=== PATIENT | female | born 1955 | race Caucasian/White ===

== ENCOUNTER 2016-08-16 22:18 | Inpatient (IN) | payer OTHER ==
[~2016-08-16] VITALS: Ht 170.2 cm; Wt 86.2 kg
[~2016-08-16 22:18] MED LIST: ASPI81EC PO; QUET50TA PO; TAMO20TA3 PO; VENL75CE5 PO
--- NOTE | 2016-08-16 22:30 | NUR ---
61/F BIBA FROM HOME FOR SOB FROM VOMITING. NO S/S OF RESP DISTRESS OR DISCOMFORT AT THIS TIME. PATIENT IS AMBULATORY AND VSS. PATIENT WHEELCHAIR ASSISTED TO MOE CLAY. ER AWARE.
--- NOTE | 2016-08-16 23:52 | NUR ---
61/F BIBA FROM HOME W/C/O SOB, N/V. PT VOMMITING, INCREASED HTN, AND STATES HER ADB HURTS. DENIES ANY CHEST PAIN, BUT STATES FEELS SOB. O2 SAT 100%RA. ER MD AWARED OF IT.
--- NOTE | 2016-08-17 00:28 | NUR ---
Dr. Villeda evaluating patient at bedside.
[2016-08-17] MEDS ORDERED: NACL 0.9% 1,000 ML IV ONE (00:30)
[2016-08-17 01:08] LABS: BASOPHILS # (AUTO) 0.1 K/uL (0.00-0.22); BASOPHILS % (AUTO) 1.1 % (0.0-2.0); EOSINOPHILS # (AUTO) 0.1 K/uL (0-0.4); EOSINOPHILS % (AUTO) 1.3 % (0.0-4.0); HEMATOCRIT 45.2 % (36-48); HEMOGLOBIN 14.7 g/dL (12.0-16.0); LYMPHOCYTES # (AUTO) 2.1 K/uL (2.5-16.5); LYMPHOCYTES % (AUTO) 18.6 % (20.5-51.1); MEAN CORPUSCULAR HEMOGLOBIN 31 pg (27-31); MEAN CORPUSCULAR HGB CONC 33 g/dL (33-37); MEAN CORPUSCULAR VOLUME 94 fL (80-94); MONOCYTES # (AUTO) 1.1 K/uL (0.8-1.0); MONOCYTES % (AUTO) 9.3 % (1.7-9.3); NEUTROPHILS # (AUTO) 8.1 K/uL (1.8-7.7); NEUTROPHILS % (AUTO) 69.7 % (42.2-75.2); PLATELET COUNT (AUTO) 189 K/uL (140-450); RED BLOOD CELL COUNT(AUTO) 4.81 MIL/uL (4.20-5.40); RED CELL DISTRIBUTION WIDTH 12.2 % (11.6-13.7); WHITE BLOOD COUNT (AUTO) 11.5 K/uL (4.8-10.8)
[2016-08-17] MEDS ORDERED: ONDANSETRON 4 MG/2 ML VIAL IM ONE (01:10)
[2016-08-17 01:23] LABS: ALBUMIN 3.8 g/dL (3.4-5.0); ANION GAP 15.6 (8-16); CALCIUM 8.9 mg/dL (8.5-10.1); CARBON DIOXIDE 23.4 mmol/L (21-32); TOTAL BILIRUBIN 0.5 mg/dL (0.0-1.0); TOTAL PROTEIN, SERUM 7.7 g/dL (6.4-8.2)
[2016-08-17] MEDS ORDERED: fentaNYL 0.05 MG/ML VIAL IM ONE (01:25)
[2016-08-17 01:57] LABS: INR 1.1 (0.8-1.2); PARTIAL THROMBOPLASTIN TIME 24.3 secs (22-35.6); PROTHROMBIN TIME 10.8 secs (10.8-13.4)
[2016-08-17 01:59] LABS: LACTIC ACID 2.9 mmol/L (0.4-2.0)
[2016-08-17] MEDS ORDERED: NACL 0.9% 1,500 ML IV ONE (02:00)
[2016-08-17] MEDS ORDERED: POTASSIUM CHLORIDE 10 MEQ TABER PO ONE (02:00)
[2016-08-17] MEDS ORDERED: METOCLOPRAMIDE 10 MG/2 ML INJ VIAL IVP ONE (02:05)
[2016-08-17] MEDS ORDERED: PIPERACILLIN/TAZOBACTAM 3.375 GM in DEXTROSE 5% 50 ML IV ONE (02:05)
[2016-08-17] MEDS ORDERED: PIPERACILLIN/TAZOBACTAM 3.375 GM VIAL IV ONE ×2 (02:08→05:10)
--- NOTE | 2016-08-17 02:11 | NUR ---
URINE PH: 9.0. MD NOTIFIED.
[2016-08-17 02:22] LABS: APPEARANCE,URINE CLOUDY (CLEAR); BILIRUBIN,URINE NEGATIVE (NEGATIVE); BLOOD, URINE TRACE-I (NEGATIVE); COLOR,URINE YELLOW (YELLOW); LEUKOCYTE ESTERASE ,URINE NEGATIVE (NEGATIVE); NITRITE, URINE NEGATIVE (NEGATIVE); PROTEIN,URINE NEGATIVE (NEGATIVE); UGLUCOSE TRACE (NEGATIVE); UROBILINOGEN,URINE 0.2 EU/dL (0.2 - 1)
[2016-08-17 02:31] LABS: BACTERIA,URINE OCCASSIONAL /HPF (None Seen); RBC,URINE 3-10 (FEW) /HPF (0-5); URINE AMORPHOUS URATE 2+ /HPF (None Seen); WBC,URINE 0-5 (RARE) /HPF (0-5)
[2016-08-17] MEDS ORDERED: ONDANSETRON 4 MG/2 ML VIAL IVP ONE (02:45)
[2016-08-17] MEDS ORDERED: POTASSIUM CHL 30 MEQ/ D5-1/2NS 1,000 ML IV ONE (02:45)
--- NOTE | 2016-08-17 02:50 | NUR ---
ADMINISTERED ZOFRAN AND POTASSIUM PO ORDERED BY ; AWARE OF K PO. PATIENT TOLERATED WELL. WILL CONTINUE TO MONITOR AND REASSESS. Addendum: 08/17/[address] LOBO OK TO GIVE K PO AND IV
--- NOTE | 2016-08-17 03:00 | NUR ---
Patient will be admitted to care of . Admited to [facility]. Will go to room 119A. Belongings list completed. REPORT GIVEN Alexia LAW FOR CONTINUITY OF CARE.
--- NOTE | 2016-08-17 03:25 | NUR ---
Admitted from E.. with chief complaint of SOB D/T VOMITING & ABDOMINAL PAIN. A 61 y/o. Female, Appropriate. ALERT AWAKE ORIENTED X4. INITIAL ASSESSMENT DONE. NO S/S OF RESPIRATORY DISTRESS OR SOB NOTED. NO C/O PAIN OR ANY DISCOMFORT AT THIS TIME. SKIN IS INTACT CLEAN DRY AND WARM TO TOUCH. PLAN OF CARE REVIEWED TO PT AND VERBALIZED UNDERSTANDING. oriented to call light, bed, phone,television, bathroom, smoking policy, visiting hours, procedures, ID bracelet on. Belongings list checked. CALL LIGHT WITHIN REACH. WILL CONTINUE TO MONITOR.
[2016-08-17] MEDS: DEXT 5% /NACL 0.9% 1,000 ML IV SCH ×2 (03:46→15:22)
[2016-08-17] MEDS ORDERED: PIPERACILLIN/TAZOBACTAM 3.375 GM in DEXTROSE 5% 50 ML IV SCH (05:00)
--- NOTE | 2016-08-17 05:30 | NUR ---
AM CARE RENDERED. BED LINEN CHANGED. INSTRUCTED PT TO REPOSITION. KEPT CLEAN AND DRY. CALL LIGHT WITHIN. WILL CONTINUE TO MONITOR.
--- NOTE | 2016-08-17 07:28 | NUR ---
RECEIVED REPORT FROM NIGHT NURSE, P IS AAOX4, ON ROOM AIR, IV TO LEFT AC 20G INFUSING WELL, NO S/S OF DISTRESS OR DISCOMFORT NOTED.INITIAL ASSESSMENT COMPLETED, REVIEWED PLAN OF CARE WITH PT, PT VERBALIZED UNDERSTANDING, ORIENTED PT TO ROOM AND ENVIRONMENT. CALL LIGHT WITHIN REACH. WILL CONTINUE TO MONITOR.
--- NOTE | 2016-08-17 07:28 | NUR ---
PT HAS NO S/S OF ANY DISCOMFORT. PLAN OF CARE ENDORSED TO SOY MINOR AT BEDSIDE FOR CONTINUITY OF CARE.
[2016-08-17 08:00] VITALS: BP 165/90
[2016-08-17] MEDS: VENLAFAXINE XR 75 MG CAPER PO SCH (08:44)
[2016-08-17] MEDS: ECOTRIN 81 MG TABEC PO SCH (08:44)
[2016-08-17] MEDS: QUEtiapine FUMARATE 25 MG TAB PO SCH (08:44)
[2016-08-17] MEDS: ENOXAPARIN 40 MG/0.4 ML SYR SUBQ SCH (08:45)
[2016-08-17] MEDS: MORPHINE SULFATE 2 MG/ML SYR IVP PRN ×2 (08:46→21:00)
--- NOTE | 2016-08-17 08:51 | NUR ---
DUE MEDICATIONS GIVEN PT TOLERATED WELL. PT STATES ABD PAIN 6/10 MEDICATED PER MD ORDERS. CALL LIGHT WITHIN REACH. WILL CONTINUE TO MONITOR.
[2016-08-17] MEDS: TAMOXIFEN 10 MG TAB PO SCH (09:00)
[2016-08-17] MEDS ORDERED: ENOXAPARIN 40 MG/0.4 ML SYR SUBQ SCH (09:00)
--- NOTE | 2016-08-17 09:07 | NUR ---
PATIENT HAS BEEN SCREENED AND CATEGORIZED MODERATE NUTRITION RISK. PATIENT WILL BE SEEN WITHIN 3-5 DAYS OF ADMISSION. 08/19/16-08/21/[address] Addendum: 08/18/16 at [address] PATIENT HAS BEEN RESCREENED AND RECATEGORIZED HIGH NUTRITION RISK. PATIENT WILL BE SEEN WITHIN 1-2 DAYS OF ADMISSION. 08/17/16-08/18/[address]
--- NOTE | 2016-08-17 10:30 | NUR ---
CHECKED IN ON PT, PT CURRENTLY SLEEPIN AT THIS TIME. CALL LIGHT WITHIN REACH. WILL CONTINUE TO MONITOR.
--- NOTE | 2016-08-17 11:15 | NUR ---
PT IS REFUSING TO CHANGE GOWNS OR BED SHEETS, ASSISTED PT TO RESTROOM AND BACK TO BED SAFELY. CALL LIGHT WITHIN REACH.
[2016-08-17] MEDS ORDERED: POTASSIUM CHLORIDE 10 MEQ TABER PO SCH (12:00)
[2016-08-17] MEDS: PIPER/TAZO 3.375GM/D5W PREMIX 50 ML IV SCH ×2 (12:34→21:00)
--- NOTE | 2016-08-17 12:36 | NUR ---
DUE MEDICATION GIVEN, PT TOLERATED WELL. NO S/S OF DISTRESS OR DISCOMFORT NOTED. CALL LIGHT WITHIN REACH. WILL CONTINUE TO MONITOR.
--- NOTE | 2016-08-17 13:56 | NUR ---
CHECKED IN ON PT, PT CURRENTLY SLEEPING. NO S/S OF RESPIRATORY DISTRESS NOTED, CALL LIGHT WITHIN REACH. WILL CONTINUE TO MONITOR.
--- NOTE | 2016-08-17 15:38 | NUR ---
PAGED DR VERONICA REGARDING BP OF 167/107 HR OF 108, NEW ORDERS RECEIVED.
[2016-08-17] MEDS ORDERED: LABETALOL 100 MG TAB PO SCH (15:40)
[2016-08-17 16:00] VITALS: BP 164/101
--- NOTE | 2016-08-17 16:16 | NUR ---
LABETALOL GIVEN PER MD ORDERS FOR HIGH BP OF 164/101 AND HR OF 108. CALL LIGHT WITHIN REACH. WILL CONTINUE TO MONITOR.
--- NOTE | 2016-08-17 16:55 | NUR ---
RECHECKED BP 162/97 HR 89. CALL LIGHT WITHIN REACH. WILL CONTINUE TO MONITOR.
--- NOTE | 2016-08-17 18:35 | NUR ---
CHECKED IN ON PT, PT CURRENTLY SLEEPING. PT REFUSES TO EAT. CALL LIGHT WITHIN REACH. WILL CONTINUE TO MONITOR.
--- NOTE | 2016-08-17 19:38 | NUR ---
ENDORSED PLAN OF CARE TO NIGHT NURSE, PT IN STABLE CONDITION
--- NOTE | 2016-08-17 19:39 | NUR ---
RECD. RESTING IN BED, AWAKE, A/0X4. RESPIRATION EVEN AND UNLABORED. IV OF D5 NS OF 75 ML/HR INFUSING, LEFT AC G 20. WATCHING TV. PLAN OF CARE FOR THE SHIFT DISCUSSED. VERBALIZED UNDERSTANDING. DENIES PAIN 0/10.
[2016-08-17 20:00] VITALS: BP 155/88
--- NOTE | 2016-08-17 20:00 | NUR ---
Patient's Plan of Care was discussed and reviewed with DANCE PROFESSOR: TAMANNA OTERO
--- NOTE | 2016-08-17 20:30 | NUR ---
ASSISTED TO BR TO VOID, VERBALIZED FEELINGS OF BODY WEAKNESS. BACK TO BED AFTER VOIDING. SAFETY MAINTAINED. SHOUTS WHEN IRRITATED. WORRIED ABOUT HER PETS. ASSISTED TO CALL SYLVIE HER NEIGHBOR. SPOKE TO SYLVIE REGARDING FOOD FOR HER PETS.
[2016-08-18] MEDS: HYDROcodone/APAP 5/325 MG 1 TAB TAB PO PRN ×2 (04:04→20:56)
[2016-08-18] MEDS: PIPER/TAZO 3.375GM/D5W PREMIX 50 ML IV SCH ×3 (04:34→20:03)
[2016-08-18] MEDS: ONDANSETRON 4 MG/2 ML VIAL IVP PRN ×2 (04:35→20:03)
--- NOTE | 2016-08-18 04:35 | NUR ---
NAUSEATED, MEDICATED WITH ZOFRAN 4 MG. IVP BY MIYL SERRANO
--- NOTE | 2016-08-18 05:05 | NUR ---
NO NAUSEA NOTED, SLEEPING COMFORTABLY IN BED.
[2016-08-18] MEDS: DEXT 5% /NACL 0.9% 1,000 ML IV SCH ×2 (05:10→17:07)
[2016-08-18 06:38] LABS: BASOPHILS # (AUTO) 0.2 K/uL (0.00-0.22); BASOPHILS % (AUTO) 1.8 % (0.0-2.0); EOSINOPHILS # (AUTO) 0.2 K/uL (0-0.4); EOSINOPHILS % (AUTO) 1.3 % (0.0-4.0); HEMATOCRIT 42.4 % (36-48); HEMOGLOBIN 14.1 g/dL (12.0-16.0); LYMPHOCYTES # (AUTO) 2.7 K/uL (2.5-16.5); LYMPHOCYTES % (AUTO) 20.1 % (20.5-51.1); MEAN CORPUSCULAR HEMOGLOBIN 31 pg (27-31); MEAN CORPUSCULAR HGB CONC 33 g/dL (33-37); MEAN CORPUSCULAR VOLUME 94 fL (80-94); MONOCYTES # (AUTO) 1.6 K/uL (0.8-1.0); MONOCYTES % (AUTO) 11.8 % (1.7-9.3); NEUTROPHILS # (AUTO) 8.7 K/uL (1.8-7.7); PLATELET COUNT (AUTO) 181 K/uL (140-450); RED BLOOD CELL COUNT(AUTO) 4.52 MIL/uL (4.20-5.40); RED CELL DISTRIBUTION WIDTH 12.3 % (11.6-13.7); WHITE BLOOD COUNT (AUTO) 13.4 K/uL (4.8-10.8)
--- NOTE | 2016-08-18 07:15 | NUR ---
RECEIVED REPORT FROM NIGHT NURSE, PT IS AAOX4, ON ROOM AIR, IV TO LEFT AC 20G WITH D5NS AT 75ML/HR INFUSING WELL, NO S/S OF DISTRESS OR DISCOMFORT NOTED.INITIAL ASSESSMENT COMPLETED, REVIEWED PLAN OF CARE WITH PT, PT VERBALIZED UNDERSTANDING, ORIENTED PT TO ROOM AND ENVIRONMENT. CALL LIGHT WITHIN REACH. WILL CONTINUE TO MONITOR.
--- NOTE | 2016-08-18 07:15 | NUR ---
CONDITION REMAIN STABLE. ENDORSED TO MILY OLIVIER FOR CONTINUITY OF CARE.
[2016-08-18 07:34] LABS: ALBUMIN 3.5 g/dL (3.4-5.0); CALCIUM 8.1 mg/dL (8.5-10.1); CREATININE 0.7 mg/dL (0.6-1.3)
[2016-08-18 07:45] LABS: ANION GAP 15.9 (8-16); CARBON DIOXIDE 22.3 mmol/L (21-32); POTASSIUM 3.2 mmol/L (3.5-5.1); TOTAL BILIRUBIN 0.6 mg/dL (0.0-1.0); TOTAL PROTEIN, SERUM 7.3 g/dL (6.4-8.2)
[2016-08-18 08:00] VITALS: BP 146/99
[2016-08-18] MEDS ORDERED: amLODIPine 5 MG TAB PO SCH (09:00)
[2016-08-18] MEDS ORDERED: POTASSIUM CHLORIDE 10 MEQ TABER PO SCH (09:29)
[2016-08-18] MEDS: ECOTRIN 81 MG TABEC PO SCH (10:04)
[2016-08-18] MEDS: QUEtiapine FUMARATE 25 MG TAB PO SCH (10:04)
[2016-08-18] MEDS: VENLAFAXINE XR 75 MG CAPER PO SCH (10:04)
[2016-08-18] MEDS: TAMOXIFEN 10 MG TAB PO SCH (10:05)
[2016-08-18] MEDS: ENOXAPARIN 40 MG/0.4 ML SYR SUBQ SCH (10:06)
--- NOTE | 2016-08-18 10:08 | NUR ---
DUE MEDICATIONS GIVEN, PT TOLERATED WELL. PT CURRENTLY WAKE, SITTING AT BEDSIDE. CALL LIGHT WITHIN REACH. WILL CONTINUE TO MONITOR.
--- NOTE | 2016-08-18 11:55 | NUR ---
PT REFUSING TO CHANGE GOWN OR BED SHEETS, PT STATES THAT SHE WANTS TO TALK TO THE DOCTOR, INFORMED PT THAT WILL BE IN TO SEE HER SOON. WILL CONTINUE TO MONITOR.
--- NOTE | 2016-08-18 13:29 | NUR ---
DUE MEDICATIONS GIVEN, PT CURRENTLY SLEEPING, CALL LIGHT WITHIN REACH. WILL CONTINUE TO MONITOR.
--- NOTE | 2016-08-18 14:13 | NUR ---
08/18/16 RD INITIAL ASSESSMENT COMPLETED PLEASE REFER TO NUTRITION ASSESSMENT UNDER CARE ACTIVITY FOR ESTIMATED NUTRITIONAL NEEDS. RD RECOMMENDATIONS: 1. CONTINUE CLEAR LIQUID DIET TOLERATED PER MD 2. ENCOURAGE INCREASED PO INTAKES 3. WHEN PT MEDICALLY APPROPRIATE CONSIDER ADVANCE DIET TOLERATED TO CARDIAC D/T HIGH BLOOD PRESSURE. 4. RD WILL F/U 3-5 DAYS; MODERATE RISK. JOSÉ MANUEL SHARMA, RD
--- NOTE | 2016-08-18 15:15 | NUR ---
PT IS REFUSING TO EAT, PT STATES SHES SLEEPY AND TO LET HER SLEEP. CALL LIGHT WITHIN REACH WILL CONTINUE TO MONITOR.
[2016-08-18 16:00] VITALS: BP 105/70
--- NOTE | 2016-08-18 17:45 | NUR ---
CHECKED IN ON PT, PT STATES THAT SHES UPSET AND DOESN'T KNOW WHY SHE IS HERE, DISCUSSED PLAN OF CARE WITH PT, AND EXPLAINED TO PT THAT SHE WILL BE STAYING OVER NIGHT AND WILL BE IN TO SEE HER TOMORROW. PT VERBALIZED UNDERSTANDING.
--- NOTE | 2016-08-18 19:15 | NUR ---
ENDORSED PLAN OF CARE TO NIGHT NURSE.
--- NOTE | 2016-08-18 19:20 | NUR ---
RECEIVED REPORT FROM DAY RN AT BEDSIDE, PATIENT IS AAOX4. PATIENT IS ON ROOM AIR. NO SOB OR SIGN OF DISTRESS. PATIENT HAS IV TO LAC 20G PATENT INTACT AND ASYMPTOMATIC. PATIENT SKIN IS INTACT. PATIENT STATING SHE IS VOMITING, NO SIGN OF EMESIS, JUST SPIT. WILL ADMINISTER ZOFRAN. DISCUSSED PLAN OF CARE WITH PATIENT, PATIENT VERBALIZED UNDERSTANDING. SAFETY MEASURES CHECKED, BED ALARM ON, CALL LIGHT WITHIN REACH. WILL CONTINUE TO MONITOR.
[2016-08-18 20:00] VITALS: BP 160/109
--- NOTE | 2016-08-18 20:11 | NUR ---
ADMINISTERED PM MED, PATIENT TOLERATED WELL, ADMINISTERED ZOFRAN PER MD ORDER D/T PATIENT C/O NAUSEA AND VOMITING. PATIENT GAGGING WITH NO VOMIT BUT SPIT. CALL LIGHT WITHIN REACH. WILL CONTINUE TO MONITOR.
--- NOTE | 2016-08-18 22:00 | NUR ---
PATIENT ASKING TO TAKE HOT SHOWER, PATIENT ASSISTED BY METAL LEAF LAYER TO SHOWER. IV TAPED, CALL LIGHT WITHIN REACH. WILL CONTINUE TO MONITOR.
--- NOTE | 2016-08-19 | NUR ---
PATIENT SITTING UP IN BED, PATIENT STATED HER SHOWER MADE HER FEEL BETTER, PROVIDED PATIENT WITH ICE CHIPS. NO SOB OR SIGN OF DISTRESS, CALL LIGHT WITHIN REACH. WILL CONTINUE TO MONITOR.
--- NOTE | 2016-08-19 02:10 | NUR ---
PATIENT SLEEPING, NO SOB OR SIGN OF DISTRESS, CALL LIGHT WITHIN REACH. WILL CONTINUE TO MONITOR.
--- NOTE | 2016-08-19 03:30 | NUR ---
PATIENT TAKING ANOTHER SHOWER, PATIENT STATES IT HELPS TO MAKE HER FEEL BETTER. WILL CONTINUE TO MONITOR PATIENT.
[2016-08-19 04:00] VITALS: BP 115/79
--- NOTE | 2016-08-19 04:45 | NUR ---
VITAL SIGNS STABLE, NO SOB OR SIGN OF DISTRESS, PATIENT STATED SHOWER HELPED HER TO RELAX, WILL PROVIDE PATIENT WITH ICE CHIPS PER REQUEST.
[2016-08-19] MEDS: PIPER/TAZO 3.375GM/D5W PREMIX 50 ML IV SCH ×3 (05:14→20:35)
[2016-08-19 05:58] LABS: BASOPHILS # (AUTO) 0.2 K/uL (0.00-0.22); BASOPHILS % (AUTO) 1.7 % (0.0-2.0); EOSINOPHILS # (AUTO) 0.1 K/uL (0-0.4); EOSINOPHILS % (AUTO) 0.4 % (0.0-4.0); HEMOGLOBIN 14.4 g/dL (12.0-16.0); LYMPHOCYTES # (AUTO) 3.2 K/uL (2.5-16.5); LYMPHOCYTES % (AUTO) 25.1 % (20.5-51.1); MEAN CORPUSCULAR HEMOGLOBIN 31 pg (27-31); MEAN CORPUSCULAR HGB CONC 34 g/dL (33-37); MEAN CORPUSCULAR VOLUME 93 fL (80-94); MONOCYTES # (AUTO) 1.4 K/uL (0.8-1.0); MONOCYTES % (AUTO) 10.9 % (1.7-9.3); NEUTROPHILS # (AUTO) 7.8 K/uL (1.8-7.7); NEUTROPHILS % (AUTO) 61.9 % (42.2-75.2); PLATELET COUNT (AUTO) 211 K/uL (140-450); RED CELL DISTRIBUTION WIDTH 12.4 % (11.6-13.7); WHITE BLOOD COUNT (AUTO) 12.7 K/uL (4.8-10.8)
[2016-08-19 06:50] LABS: ANION GAP 16.1 (8-16); CALCIUM 8.6 mg/dL (8.5-10.1); CARBON DIOXIDE 22.1 mmol/L (21-32); POTASSIUM 3.2 mmol/L (3.5-5.1)
--- NOTE | 2016-08-19 07:00 | NUR ---
Patient's Plan of Care was discussed and reviewed with SILK WINDING MACHINE OPERATOR: SILVERIO
--- NOTE | 2016-08-19 07:10 | NUR ---
ENDORSED PATIENT TO DAY COMMUNITY MANAGER AT BEDSIDE, PATIENT IN STABLE CONDITION.
[2016-08-19] MEDS: DEXT 5% /NACL 0.9% 1,000 ML IV SCH ×2 (07:50→20:36)
[2016-08-19 08:00] VITALS: BP 142/89
[2016-08-19] MEDS ORDERED: MORPHINE SULFATE 2 MG/ML SYR IVP PRN (08:47)
[2016-08-19] MEDS: ECOTRIN 81 MG TABEC PO SCH (08:58)
[2016-08-19] MEDS: VENLAFAXINE XR 75 MG CAPER PO SCH (08:59)
[2016-08-19] MEDS: amLODIPine 5 MG TAB PO SCH (08:59)
[2016-08-19] MEDS: QUEtiapine FUMARATE 25 MG TAB PO SCH (08:59)
[2016-08-19] MEDS: TAMOXIFEN 10 MG TAB PO SCH (09:02)
[2016-08-19] MEDS: ENOXAPARIN 40 MG/0.4 ML SYR SUBQ SCH (09:03)
[2016-08-19] MEDS ORDERED: POTASSIUM CHLORIDE 10 MEQ TABER PO SCH (11:20)
[2016-08-19 12:00] VITALS: BP 129/81
--- NOTE | 2016-08-19 12:28 | NUR ---
CM NOTE INITIAL REVIEW SENT TO [facility] FAX# [phone] PH# FLAKITO [phone]
--- NOTE | 2016-08-19 12:50 | NUR ---
DR. VERONICA CAME, INFORMED OF LATEST LAB RESULTS.
--- NOTE | 2016-08-19 16:47 | NUR ---
WATCHING TV AT THIS TIME. NO DISCOMFORT NOTED. CALL LIGHT WITHIN REACH.
--- NOTE | 2016-08-19 19:27 | NUR ---
BEDSIDE REPORT GIVEN TO SILVIO KEYS. IVF INFUSING WELL. IN STABLE CONDITION.
--- NOTE | 2016-08-19 19:30 | NUR ---
RECEIVED REPORT FROM MILY SAWYER, AT BEDSIDE. INITIAL ASSESSMENT AND BODY CHECK DONE. PATIENT AAO X 4, ABLE TO FOLLOW COMMAND AND MAKE NEEDS KNOWN AND AMBULATORY BY SELF WITH STEADY GAIT. PATIENT CURRENTLY SITING UP ON THE BED AND WATCHING IV. NO S/S OF DISTRESS OR SOB NOTED. PATIENT STILL C/O MODERATE ABDOMINAL PAIN AT THIS TIME. SKIN WARM/DRY TO TOUCH AND INTACT. DISCUSSED PLAN OF CARE, PAIN MANAGEMENT AND MEDICATION REGIMEN WITH PATIENT AND PATIENT VERBALIZED UNDERSTANDING. PLACED PATIENT ON SAFETY PRECAUTIONS AND WILL CONTINUE TO MONITOR. CALL LIGHT LEFT WITHIN REACH.
[2016-08-19 20:00] VITALS: BP 99/64
[2016-08-19] MEDS: HYDROcodone/APAP 5/325 MG 1 TAB TAB PO PRN (20:39)
--- NOTE | 2016-08-19 21:40 | NUR ---
ADMINISTERED DUE AND PRN PAIN MEDICATIONS MD'S ORDERED WITH EDUCATION GIVEN. PATIENT COMPLYING WITH MEDICATIONS AND STATED WITH SOME PAIN RELIEF AFTER 1 HOUR POST-MEDICATION. ALL NEEDS ARE ATTENDED. KEPT PATIENT IN COMFORTABLE POSITION/WARM AND WILL CONTINUE TO MONITOR.
[2016-08-20] VITALS: BP 97/58
--- NOTE | 2016-08-20 00:24 | NUR ---
PATIENT ASLEEP COMFORTABLY IN BED AND V/S REMAINED WNL. NO S/S OF DISTRESS NOTED. WILL CONTINUE TO MONITOR.
--- NOTE | 2016-08-20 02:32 | NUR ---
ROUNDS MADE, SEEN PATIENT ASLEEP QUIETLY IN BED WITH EVEN AND UNLABORED RESPIRATORY RATE. NO CHANGE IN CONDITION NOTED. WILL CONTINUE TO MONITOR.
[2016-08-20] MEDS: PIPER/TAZO 3.375GM/D5W PREMIX 50 ML IV SCH (04:10)
--- NOTE | 2016-08-20 05:08 | NUR ---
PATIENT IS CLINICALLY STABLE WITHOUT S/S OF DISTRESS NOTED. WILL CONTINUE TO MONITOR.
[2016-08-20 06:06] LABS: BASOPHILS # (AUTO) 0.1 K/uL (0.00-0.22); BASOPHILS % (AUTO) 1.8 % (0.0-2.0); EOSINOPHILS # (AUTO) 0.1 K/uL (0-0.4); EOSINOPHILS % (AUTO) 0.9 % (0.0-4.0); HEMATOCRIT 37.3 % (36-48); HEMOGLOBIN 12.3 g/dL (12.0-16.0); LYMPHOCYTES # (AUTO) 4.4 K/uL (2.5-16.5); LYMPHOCYTES % (AUTO) 66.3 % (20.5-51.1); MEAN CORPUSCULAR HEMOGLOBIN 31 pg (27-31); MEAN CORPUSCULAR HGB CONC 33 g/dL (33-37); MEAN CORPUSCULAR VOLUME 95 fL (80-94); MONOCYTES % (AUTO) 0.7 % (1.7-9.3); NEUTROPHILS % (AUTO) 30.3 % (42.2-75.2); PLATELET COUNT (AUTO) 144 K/uL (140-450); RED BLOOD CELL COUNT(AUTO) 3.94 MIL/uL (4.20-5.40)
[2016-08-20 06:35] LABS: ANION GAP 12.3 (8-16); CALCIUM 7.7 mg/dL (8.5-10.1); CREATININE 0.8 mg/dL (0.6-1.3); POTASSIUM 3.3 mmol/L (3.5-5.1)
--- NOTE | 2016-08-20 07:13 | NUR ---
ASSUMED CONTINUITY OF CARE. NO SIGNS AND SYMPTOMS OF ACUTE DISTRESS NOTED. INITIAL ASSESSMENT DONE. RE-ORIENTED TO EVENTS AND SURROUNDINGS. KEEP COMFORTABLE ON BED. EXPLAINED DIAGNOSIS, PLAN OF CARE, PAIN MANAGEMENT TEACHING, USE OF CALL LIGHT/BED/TV/BATHROOM. FALL PRECAUTION APPLIED. CALL LIGHT WITHIN REACH.
--- NOTE | 2016-08-20 07:13 | NUR ---
ENDORSED PLAN OF CARE TO GURVINDER SAWYER, AT BEDSIDE. PATIENT RESTED WELL THROUGHOUT THE SHIFT AND REMAINED IN STABLE CONDITION. NO APPARENT DISTRESS NOTED.
[2016-08-20 08:00] VITALS: BP 104/74
[2016-08-20 08:00] LABS: WHITE BLOOD COUNT (AUTO) 6.6 K/uL (4.8-10.8)
[2016-08-20] MEDS ORDERED: CIPR500T4 PO (08:00)
[2016-08-20] MEDS: VENLAFAXINE XR 75 MG CAPER PO SCH (08:50)
[2016-08-20] MEDS: ECOTRIN 81 MG TABEC PO SCH (08:50)
[2016-08-20] MEDS: QUEtiapine FUMARATE 25 MG TAB PO SCH (08:50)
[2016-08-20] MEDS: amLODIPine 5 MG TAB PO SCH (08:51)
[2016-08-20] MEDS: ENOXAPARIN 40 MG/0.4 ML SYR SUBQ SCH (08:51)
[2016-08-20] MEDS: TAMOXIFEN 10 MG TAB PO SCH (08:51)
[2016-08-20] MEDS ORDERED: POTASSIUM CHLORIDE 10 MEQ TABER PO SCH (09:00)
--- NOTE | 2016-08-20 09:49 | NUR ---
EXPLAINED MD D/C ORDER, DIAGNOSIS, D/C INSTRUCTIONS AND TEACHING, FOLLOW-UP WITH PRIMARY CARE PHYSICIAN IN 1 TO 2 WEEKS, MD D/C PRESCRIPTION LIST EDUCATION, DISEASE MANAGEMENT, PAIN MANAGEMENT TEACHING, DIET. VERBALIZED UNDERSTANDING.
--- NOTE | 2016-08-20 10:40 | NUR ---
REFUSED TO USE WHEELCHAIR. REFUSED TO SIGN 1 PIECE OF DISCHARGE PAPER. D/C HOME ASSISTED BY CLARISA NAVA. PT. UPSET DUE TO MD ONLY PRESCRIBED ANTI-BIOTIC. EXPLAINED THAT MD DID NOT PRESCRIBE PAIN MEDICINE AND CAN'T PRESCRIBE OVER THE PHONE. PT. NON-COMPLIANT BUT WANTED TO BE D/C. IN STABLE CONDITION. INFORMED CHARGE NURSE CAMELIA KEYS.
--- NOTE | 2016-08-20 11:37 | NUR ---
CM NOTE CONCURRENT REVIEW SENT TO [facility] FAX# [phone] ATTN: FLAKITO # [phone]
== END 2016-08-20 10:40 | disposition home or self-care (01) | DRG 690 ==
LOC: MED 22:18 → MTU 08-17 02:36 → OBSVTOIN 08-18 15:42
PROVIDERS: ADMIT Hospitalist; ATTEND Hospitalist
DX: N39.0 Urinary tract infection, site not specified (principal); E87.6 Hypokalemia; F31.9 Bipolar disorder, unspecified; E86.0 Dehydration; D72.829 Elevated white blood cell count, unspecified; I10 Essential (primary) hypertension; F17.210 Nicotine dependence, cigarettes, uncomplicated; Z79.810 Long term (current) use of selective estrogen receptor modulators (SERMs); Z88.1 Allergy status to other antibiotic agents; Z85.3 Personal history of malignant neoplasm of breast
CPT/HCPCS: 36556; 96365; 96372; 96375; 99291; G0378; 36415; 71010; 80048; 80053; 81001; 83605; 83880; 84484; 85025; 85610; 85730; 87040; 87081; 87086; 93005; C1758; J1650; J2270; J2405; J2543; J2765; J3010; J7030; J7042; J7060; Q0092

== ENCOUNTER 2016-09-13 10:15 | Emergency (ER) | payer OTHER ==
[~2016-09-13] VITALS: Ht 170.2 cm; Wt 81.6 kg
[~2016-09-13 10:15] MED LIST changes: -ASPI81EC PO; +ASPIRIN E.C.81 M1 PO; +ASPIRIN81 M1 PO; +CIPRO500 MG PO; +EFFEXOR XR75 MG PO; +HERCEPTIN440 MG IV; +K-DUR20 MEQ PO; +PHENERGAN25 M3 PO; -QUET50TA PO; +SEROQUEL200 MG PO; +SEROQUEL50 MG PO; -TAMO20TA3 PO; +TAMOXIFEN CITRA20 MG PO; -VENL75CE5 PO; +ZOLOFT50 MG PO
--- NOTE | 2016-09-13 10:15 | NUR ---
Patient was BIBA and taken to bed 06 via gurney per EMS.
[2016-09-13 10:16] VITALS: BP 156/101
--- NOTE | 2016-09-13 10:30 | NUR ---
PT BIBA FOR EVALUATION OF ABDOMINAL PAIN X2 DAYS. HX BREAST CANCER. DENIES N/V/D; SKIN IS PINK/WARM/DRY; AAOX4 WITH EVEN AND STEADY GAIT; LUNGS CLEAR BL; HR EVEN AND REGULAR; PT DENIES ANY FEVER, CP, SOB, OR COUGH AT THIS TIME; PATIENT STATES PAIN OF 7/10 AT THIS TIME; VSS; PATIENT POSITIONED FOR COMFORT; HOB ELEVATED; BEDRAILS UP X2; BED DOWN. ER MD MADE AWARE OF PT STATUS.
[2016-09-13] MEDS ORDERED: NACL 0.9% 1,000 ML IV SCH (11:27)
--- NOTE | 2016-09-13 11:28 | NUR ---
Dr. Philippe evaluating patient at bedside.
[2016-09-13] MEDS ORDERED: FAMOTIDINE 20 MG/2 ML VIAL IVP ONE (11:30)
[2016-09-13] MEDS ORDERED: ONDANSETRON 4 MG/2 ML VIAL IVP ONE (11:30)
[2016-09-13] MEDS ORDERED: POTASSIUM CHL 40 MEQ/ D5-1/2NS 1,000 ML IV ONE (14:50)
[2016-09-13] MEDS ORDERED: NACL 0.9% 1,000 ML IV ONE (16:15)
[2016-09-13] MEDS ORDERED: cefTRIAXone 2,000 MG in DEXTROSE 5% 100 ML IV ONE (16:15)
[2016-09-13] MEDS ORDERED: cefTRIAXone 2,000 MG VIAL ONE (16:44)
--- NOTE | 2016-09-13 16:46 | NUR ---
IVANAO PT TAKEN TO CT VIA WHEEL CHAIR BY REEMA NOBLE
--- NOTE | 2016-09-13 17:01 | NUR ---
Patient back from CT via wheelchair per tech.
--- NOTE | 2016-09-13 17:01 | NUR ---
PT HAD ONLY ONE IV ACCESS ON RIGHT HAND 22G, ONLY 1L NS GIVEN
--- NOTE | 2016-09-13 18:15 | NUR ---
2 POPSICLE PROVIDED TO PT
[2016-09-13 18:50] VITALS: BP 108/69
--- NOTE | 2016-09-13 18:52 | NUR ---
Patient discharged with v/s stable. Written and verbal after care instructions given and explained. Patient alert, oriented and verbalized understanding of instructions. Ambulatory with steady gait. All questions addressed prior to discharge. ID band removed. Patient advised to follow up with PMD. Rx of KIEL GOLDEN given. Patient educated on indication of medication including possible reaction and side effects. Opportunity to ask questions provided and answered.
== END 2016-09-13 18:52 | disposition home or self-care (01) ==
LOC: MED 10:15
DX: R10.84 Generalized abdominal pain (principal); R10.11 Right upper quadrant pain; I10 Essential (primary) hypertension; Z85.3 Personal history of malignant neoplasm of breast; Z88.1 Allergy status to other antibiotic agents
CPT/HCPCS: 36415; 74176; 80048; 80053; 81001; 81025; 82150; 83690; 85025; 87040; 96365; 96366; 96368; 96375; 99285; J0696; J2405; J3490; J7030

== ENCOUNTER 2016-09-15 08:46 | Emergency (ER) | payer OTHER ==
[~2016-09-15] VITALS: Ht 172.7 cm; Wt 85.7 kg
--- NOTE | 2016-09-15 08:46 | NUR ---
PT BIBA TO BED 6 AT THIS TIME.
[2016-09-15 08:53] VITALS: BP 192/112
--- NOTE | 2016-09-15 08:53 | NUR ---
61/F BIBA FOR EVALUATION OF N/V & ABDOMINAL PAIN X2 DAYS. PT SEEN IN ER 2 DAYS AGO FOR SAME S/SX. HX HTN. SKIN IS PINK/WARM/DRY; AAOX4; UNSTEADY GAIT; LUNGS CLEAR BL; HR EVEN AND REGULAR; PT DENIES ANY FEVER, CP, SOB, OR COUGH AT THIS TIME; PATIENT STATES PAIN OF 8/10 AT THIS TIME; VSS; PATIENT POSITIONED FOR COMFORT; HOB ELEVATED; BEDRAILS UP X2; BED DOWN. ER MD MADE AWARE OF PT STATUS.
--- NOTE | 2016-09-15 08:53 | NUR ---
LAB AT BEDSIDE
[2016-09-15] MEDS ORDERED: ONDANSETRON 4 MG/2 ML VIAL IVP ONE (09:30)
[2016-09-15] MEDS ORDERED: KETOROLAC 30 MG/ML VIAL IVP ONE (09:30)
--- NOTE | 2016-09-15 09:46 | NUR ---
Stephen morel in [facility] - 09/15/16 at 1058 by MED1 LAB AT BEDSIDE
[2016-09-15] MEDS: NACL 0.9% 1,000 ML IV SCH ×2 (10:00→11:37)
[2016-09-15] MEDS ORDERED: POTASSIUM CHLORIDE 10 MEQ TABER PO ONE ×2 (11:05→12:00)
[2016-09-15] MEDS ORDERED: METOCLOPRAMIDE 10 MG/2 ML INJ VIAL IVP ONE (11:25)
[2016-09-15 13:13] VITALS: BP 159/88
--- NOTE | 2016-09-15 13:13 | NUR ---
Patient discharged with v/s stable. Written and verbal after care instructions given and explained. Patient alert, oriented and verbalized understanding of instructions. Wheel Chair Assisted with to car. All questions addressed prior to discharge. ID band removed. Patient advised to follow up with PMD. Rx of PRILOSEC & ZOFRAN given. Patient educated on indication of medication including possible reaction and side effects. Opportunity to ask questions provided and answered.
== END 2016-09-15 13:13 | disposition home or self-care (01) ==
LOC: MED 08:46
DX: G89.29 Other chronic pain (principal); R10.10 Upper abdominal pain, unspecified; E87.6 Hypokalemia; I10 Essential (primary) hypertension; F17.210 Nicotine dependence, cigarettes, uncomplicated; Z71.6 Tobacco abuse counseling; Z85.3 Personal history of malignant neoplasm of breast; Z88.1 Allergy status to other antibiotic agents; Z79.82 Long term (current) use of aspirin
CPT/HCPCS: 36415; 80053; 81001; 83605; 83690; 85025; 96361; 96374; 96375; 99284; J1885; J2405; J2765; J7030

== ENCOUNTER 2017-03-01 18:55 | Inpatient (IN) | payer OTHER ==
[~2017-03-01] VITALS: Ht 170.2 cm; Wt 76.7 kg
[~2017-03-01 18:55] MED LIST changes: +ASPI81EC PO; -ASPIRIN E.C.81 M1 PO; -ASPIRIN81 M1 PO; -CIPRO500 MG PO; -EFFEXOR XR75 MG PO; -HERCEPTIN440 MG IV; -K-DUR20 MEQ PO; -PHENERGAN25 M3 PO; +QUET50TA PO; -SEROQUEL200 MG PO; -SEROQUEL50 MG PO; +TAMO20TA3 PO; -TAMOXIFEN CITRA20 MG PO; +VENL75CE5 PO; -ZOLOFT50 MG PO
[2017-03-01 19:16] VITALS: BP 142/100
--- NOTE | 2017-03-01 20:00 | NUR ---
BIB TO ER BED 4 FROM ER OBED
--- NOTE | 2017-03-01 20:19 | NUR ---
61Y/F PT. BIBA TO ED WITH C/O ABDOMINAL PAIN WITH N/V X 4 DAYS. PT. DISCHRGED 02/28/17 FROM [facility] FOR THE SAME SYMPTOMS. HX. BIPOLAR ON SEROQUEL.
[2017-03-01] MEDS ORDERED: NACL 0.9% 1,000 ML IV ONE (20:25)
[2017-03-01] MEDS ORDERED: ONDANSETRON 4 MG/2 ML VIAL IVP ONE (20:25)
[2017-03-01] MEDS ORDERED: KETOROLAC 30 MG/ML VIAL IVP ONE (20:25)
[2017-03-01 21:05] LABS: BASOPHILS # (AUTO) 0.4 K/uL (0.00-0.22); EOSINOPHILS # (AUTO) 0.1 K/uL (0-0.4); HEMOGLOBIN 14.7 g/dL (12.0-16.0); LYMPHOCYTES # (AUTO) 1.8 K/uL (2.5-16.5); MEAN CORPUSCULAR HEMOGLOBIN 31 pg (27-31); MEAN CORPUSCULAR HGB CONC 33 g/dL (33-37); MEAN CORPUSCULAR VOLUME 93 fL (80-94); NEUTROPHILS # (AUTO) 8.4 K/uL (1.8-7.7); PLATELET COUNT (AUTO) 189 K/uL (140-450); RED BLOOD CELL COUNT(AUTO) 4.74 MIL/uL (4.20-5.40); RED CELL DISTRIBUTION WIDTH 12.5 % (11.6-13.7); WHITE BLOOD COUNT (AUTO) 11.7 K/uL (4.8-10.8)
--- NOTE | 2017-03-01 21:10 | NUR ---
PT RRESTING IN BED, CURRENTLY RECEIVING IV FLUIDS. NO S/S OF DISTRESS NOTED AT THE MOMENT.
[2017-03-01 21:13] LABS: ANION GAP 14.7 (8-16); CARBON DIOXIDE 25.1 mmol/L (21-32); CREATININE 0.9 mg/dL (0.6-1.3); TOTAL BILIRUBIN 0.8 mg/dL (0.0-1.0)
[2017-03-01 21:15] LABS: POTASSIUM 2.8 mmol/L (3.5-5.1)
[2017-03-01] MEDS ORDERED: POTASSIUM CHL 40 MEQ/ D5-1/2NS 1,000 ML IV ONE (21:20)
[2017-03-01] MEDS ORDERED: MORPHINE SULFATE 4 MG/ML SYR IVP PRN (21:40)
[2017-03-01] MEDS ORDERED: ACETAMINOPHEN 325 MG TAB PO PRN (21:40)
[2017-03-01] MEDS ORDERED: MORPHINE SULFATE 2 MG/ML SYR IVP PRN (21:40)
[2017-03-01] MEDS ORDERED: hydrALAZINE 20 MG/ML VIAL IVP ONE (21:40)
[2017-03-01] MEDS ORDERED: ONDANSETRON 4 MG/2 ML VIAL IVP PRN (21:40)
--- NOTE | 2017-03-01 22:00 | NUR ---
PT RESTING IN BED, ON FIT MODEL, SINUS RHYTHM, NO S/S OF DISTRESS NOTED WILL CONT TO MONITOR.
--- NOTE | 2017-03-01 22:15 | NUR ---
Patient will be admitted to care of DR CONDE. Admited to [facility]. Will go to room 121B. Belongings list completed. Report to MILY MALLOY.
--- NOTE | 2017-03-01 22:18 | NUR ---
PT TRASFERED TO FLOOR VIA WHEEL CHAIR, ACCOMPANIED BY EMT. NO S/S OF DISTRESS NOTED UPON TRASFER.
--- NOTE | 2017-03-01 22:25 | NUR ---
RECEIVED REPORT FROM ED RN FOR CONTINUITY OF CARE. 61 Y.O. FEMALE BROUGHT TO UNIT WITH DX: [id number]. PATIENT IS ALERT AND ORIENTED X4, DISCUSSED PLAN OF CARE WITH PATIENT, VERBALIZED UNDERSTANDING. SHIFT ASSESSMENT DONE, VITAL SIGNS TAKEN, STABLE. NO RESPIRATORY DISTRESS NOTED ON ROOM AIR. PATIENT C/O PAIN, WILL MEDICATE PER MD ORDER. IV TO LT WRIST PATENT AND INFUSING FLUIDS WELL. MRSA SWAB COLLECTED, WRISTBANDS APPLIED. SAFETY PRECAUTIONS ENFORCED, CALL LIGHT WITHIN REACH. WILL CONTINUE TO MONITOR.
--- NOTE | 2017-03-01 22:36 | NUR ---
PATIENT C/O ABDOMINAL PAIN, MEDICATED PER MD ORDER. PATIENT STATES, "I FEEL BAD." EDUCATED PATIENT ABOUT SIDE EFFECTS OF LOW POTASSIUM, VERBALIZED UNDERSTANDING. WILL CONTINUE TO MONITOR.
[2017-03-01 23:10] VITALS: BP 136/65
[2017-03-01] MEDS: NACL 0.9% 1,000 ML IV SCH (23:45)
[2017-03-02] VITALS: BP 148/80
--- NOTE | 2017-03-02 00:11 | NUR ---
VITAL SIGNS TAKEN, PATIENT REQUESTING FOR WATER. SAFETY MEASURES ENFORCED, CALL LIGHT WITHIN REACH. WILL CONTINUE TO MONITOR.
[2017-03-02] MEDS: NACL 0.9% 1,000 ML IV SCH ×3 (00:24→19:30)
--- NOTE | 2017-03-02 02:27 | NUR ---
PT C/O NAUSEA, MEDICATED PER MD ORDER. PATIENT RESTING IN BED, WATCHING TV. WILL CONTINUE TO MONITOR FREQUENTLY.
[2017-03-02] MEDS: LORazepam 2 MG/ML VIAL IVP PRN (03:49)
--- NOTE | 2017-03-02 03:49 | NUR ---
PATIENT C/O ANXIETY STATES, "I CANT SLEEP SINCE IM NOT AT HOME." MEDICATED PER MD ORDER, VITAL SIGNS STABLE. CALL LIGHT WITHIN REACH.
--- NOTE | 2017-03-02 05:22 | NUR ---
PATIENT RESTING AT THIS TIME, NO DISTRESS OR DISCOMFORT NOTED. CALL LIGHT WITHIN REACH, WILL CONTINUE TO MONITOR.
[2017-03-02 05:24] LABS: HEMATOCRIT 40.8 % (36-48); HEMOGLOBIN 13.4 g/dL (12.0-16.0); MEAN CORPUSCULAR HEMOGLOBIN 31 pg (27-31); MEAN CORPUSCULAR HGB CONC 33 g/dL (33-37); MEAN CORPUSCULAR VOLUME 93 fL (80-94); PLATELET COUNT (AUTO) 182 K/uL (140-450); RED BLOOD CELL COUNT(AUTO) 4.39 MIL/uL (4.20-5.40); RED CELL DISTRIBUTION WIDTH 12.5 % (11.6-13.7); WHITE BLOOD COUNT (AUTO) 12.1 K/uL (4.8-10.8)
[2017-03-02 06:17] LABS: ALBUMIN 3.4 g/dL (3.4-5.0); ANION GAP 15.2 (8-16); CARBON DIOXIDE 23.6 mmol/L (21-32); CREATININE 0.8 mg/dL (0.6-1.3); TOTAL BILIRUBIN 0.5 mg/dL (0.0-1.0)
[2017-03-02 06:26] LABS: POTASSIUM 2.8 mmol/L (3.5-5.1)
--- NOTE | 2017-03-02 06:35 | NUR ---
RECEIVED CRITICAL LAB VALUE K 2.8, PAGED DR ATKINSON MGMT ANALYST FOR DR. ZAMBRANO, AWAITING RESPONSE.
[2017-03-02 06:56] LABS: LYMPHOCYTES % (MANUAL) 29 % (20-46); MONOCYTES % (MANUAL) 5 % (5-12)
--- NOTE | 2017-03-02 06:58 | NUR ---
RE PAGED DR. ATKINSON, CONCRETE TRUCK DRIVER FOR DR. ZAMBRANO REGARDING K LEVEL, AWAITING RESPONSE.
--- NOTE | 2017-03-02 07:20 | NUR ---
ENDORSED PATIENT TO DAY RN FOR CONTINUITY OF CARE, PATIENT IS IN STABLE CONDITION. NO REPLY FROM DR. ATKINSON, WILL MAKE DAY RN AWARE TO FOLLOW UP WITH K LEVEL.
--- NOTE | 2017-03-02 07:25 | NUR ---
RECEIVED REPORT FROM BLENDER OPERATOR RN AT PT BEDSIDE. PT ALERT AND ORIENTED X4, ON ROOM AIR, SKIN INTACT WITH RIGHT BREAST MASTECTOMY SCAR. 20 GAUGE IV ON THE LEFT WRIST RUNNING NS AT 100ML/HR, INTACT. PT IS AMBULATORY. PT STATED SHE WOKE UP FEELING MUCH BETTER THAN HOW SHE FELT PREVIOUS NIGHT. DISCUSSED PLAN OF CARE WITH PT, PT VERBALIZED UNDERSTANDING. PT IS STABLE, NO SIGNS OF DISTRESS NOTED. BED IN LOW POSITION, CALL LIGHT WITHIN REACH. WILL CONTINUE TO MONITOR.
--- NOTE | 2017-03-02 07:30 | NUR ---
SPOKE TO DR. ZAMBRANO REGARDING POTASSIUM 2.8, ORDERED 40 MEQ PO TABLET Q4H X2. WILL CARRY OUT.
[2017-03-02 08:00] VITALS: BP 118/66
[2017-03-02] MEDS: ECOTRIN 81 MG TABEC PO SCH (08:28)
[2017-03-02] MEDS: QUEtiapine FUMARATE 25 MG TAB PO SCH (08:29)
[2017-03-02] MEDS: TAMOXIFEN 10 MG TAB PO SCH (08:31)
[2017-03-02] MEDS: POTASSIUM CHLORIDE 10 MEQ TABER PO SCH ×2 (08:31→11:43)
[2017-03-02] MEDS: ENOXAPARIN 40 MG/0.4 ML SYR SUBQ SCH (08:32)
--- NOTE | 2017-03-02 08:35 | NUR ---
ADMINISTERED SCHEDULED MORNING MEDICATIONS. PT TOLERATED WELL. PT STABLE, NO SIGNS OF DISTRESS NOTED. BED IN LOW POSITION, CALL LIGHT WITHIN REACH. WILL CONTINUE TO MONITOR.
[2017-03-02] MEDS: VENLAFAXINE XR 75 MG CAPER PO SCH (09:00)
[2017-03-02] MEDS ORDERED: TAMOXIFEN CITRATE 20 MG PO SCH (09:00)
--- NOTE | 2017-03-02 09:48 | NUR ---
PT REQUESTED PHONE NUMBERS TO THE [facility] IN [place] OR PATIENTS' RIGHTS [facility]. LOOKED UP BOTH NUMBERS AND HANDED THEM TO PT. PT IS STABLE, NO SIGNS OF DISTRESS NOTED. BED IN LOW POSITION, CALL LIGHT WITHIN REACH. WILL CONTINUE TO MONITOR.
--- NOTE | 2017-03-02 11:35 | NUR ---
PATIENT HAS BEEN SCREENED AND CATEGORIZED HIGH NUTRITION RISK. PATIENT WILL BE SEEN WITHIN 1-2 DAYS OF ADMISSION. 03/02/17-03/03/[address]
--- NOTE | 2017-03-02 11:45 | NUR ---
ADMINISTERED SCHEDULED POTASSIUM. PT TOLERATED WELL. PT IS STABLE, NO SIGNS OF DISTRESS NOTED. BED IN LOW POSITION, CALL LIGHT WITHIN REACH. WILL CONTINUE TO MONITOR.
--- NOTE | 2017-03-02 12:45 | NUR ---
FAXED INITIAL REVIEW TO [facility] [phone] PHONE FLAKITO [phone]
--- NOTE | 2017-03-02 13:45 | NUR ---
PT IS STABLE, RESTING, NO SIGNS OF DISTRESS NOTED. BED IN LOW POSITION, CALL LIGHT WITHIN REACH. WILL CONTINUE TO MONITOR.
--- NOTE | 2017-03-02 14:22 | NUR ---
03/02/17 RD INITIAL ASSESSMENT COMPLETED PLEASE REFER TO NUTRITION ASSESSMENT UNDER CARE ACTIVITY FOR ESTIMATED NUTRITIONAL NEEDS. 1. CONTINUE REGULAR DIET 2. RD TO FOLLOW-UP 3-5 DAYS, MODERATE RISK HANNAH GERMAN RD
--- NOTE | 2017-03-02 15:00 | NUR ---
PATIENT IS IN STABLE CONDITION. NO SIGNS OF DISTRESS NOTED. BED IN LOW POSITION, CALL LIGHT WITHIN REACH. WILL CONTINUE TO MONITOR.
[2017-03-02 16:00] VITALS: BP 104/62
--- NOTE | 2017-03-02 16:55 | NUR ---
CALLED DR ZAMBRANO FROM [facility], WAS PUT ON HOLD BY AUTOMATED SYSTEM AND THEN SENT TO [facility]. I LEFT A MESSAGE STATING MY NAME, HOSPITAL, PATIENT'S NAME, SPECIFYING I WAS TRYING TO GET A HOLD OF DR ZAMBRANO BECAUSE PT WAS TRYING TO LEAVE AMA WITHOUT SIGNING AMA PAPERS, AND CALL BACK NUMBER.
--- NOTE | 2017-03-02 17:30 | NUR ---
PT CALMED DOWN AND ASKED FOR DINNER TRAY. DINNER PROVIDED. PT WANTED TO MAKE PHONE CALLS AND TAKE A SHOWER LATER. WILL ASSIST.
--- NOTE | 2017-03-02 18:28 | NUR ---
PT IS RESTING COMFORTABLY IN BED. NO DISTRESS NOTED. CALL LIGHT WITHIN REACH. WILL CONTINUE TO MONITOR.
--- NOTE | 2017-03-02 19:00 | NUR ---
PATIENT IS IN STABLE CONDITION, RESTING IN BED. NO SIGNS OF DISTRESS NOTED. BED IN LOW POSITION, CALL LIGHT WITHIN REACH. WILL CONTINUE TO MONITOR.
--- NOTE | 2017-03-02 19:29 | NUR ---
ENDORSED PT TO RISK ASSESSOR RN FOR CONTINUITY OF CARE. PATIENT IS IN STABLE CONDITION.
--- NOTE | 2017-03-02 19:30 | NUR ---
RECEIVED REPORT FROM AM SHIFT, PATIENT IS AOX4. NO S/S OF DISTRESS. NO COMPLAINTS OF PAIN. SKIN INTACT WITH A RIGHT BREAST MASTECTOMY SCAR. WITH A LEFT WRIST 20 G 24 G, INTACT AND PATENT. DISCUSSED PLAN OF CARE WITH PATIENT, VERBALIZED UNDERSTANDING. WILL CONTINUE TO MONITOR. ALL NEEDS ATTENDED. BED IN LOWEST POSITION. CALL LIGHT WITHIN REACH. SAFETY CHECKS IN PLACE.
--- NOTE | 2017-03-02 21:00 | NUR ---
CHECKED ON PATIENT, NO S/S OF DISTRESS. NO COMPLAINTS OF PAIN. ALL NEEDS ATTENDED. CALL LIGHT WITHIN REACH. SAFETY CHECKS IN PLACE.
[2017-03-02 23:58] VITALS: BP 110/75
--- NOTE | 2017-03-03 | NUR ---
VITAL SIGNS STABLE. NO S/S OF DISTRESS. NO COMPLAINTS OF PAIN AT THIS TIME. SAID THAT SHE FEELS STRONGER THAN SHE WAS EARLIER. WILL CONTINUE TO MONITOR. ALL NEEDS ATTENDED. CALL LIGHT WITHIN REACH. SAFETY CHECKS IN PLACE.
[2017-03-03] MEDS: LORazepam 2 MG/ML VIAL IVP PRN (02:47)
--- NOTE | 2017-03-03 02:55 | NUR ---
GAVE PRN ATIVAN FOR ANXIETY, WILL CONTINUE TO MONITOR.
--- NOTE | 2017-03-03 04:00 | NUR ---
MADE ROUNDS. PT ASLEEP. NO S/S OF DISTRESS. WILL CONTINUE TO MONITOR.
[2017-03-03 05:53] LABS: HEMATOCRIT 35.3 % (36-48); HEMOGLOBIN 11.9 g/dL (12.0-16.0); MEAN CORPUSCULAR HEMOGLOBIN 32 pg (27-31); MEAN CORPUSCULAR HGB CONC 34 g/dL (33-37); MEAN CORPUSCULAR VOLUME 94 fL (80-94); PLATELET COUNT (AUTO) 140 K/uL (140-450); RED BLOOD CELL COUNT(AUTO) 3.74 MIL/uL (4.20-5.40); RED CELL DISTRIBUTION WIDTH 12.4 % (11.6-13.7); WHITE BLOOD COUNT (AUTO) 7.4 K/uL (4.8-10.8)
--- NOTE | 2017-03-03 05:55 | NUR ---
MADE A NEW IV LINE AT THE LEFT HAND 24 G, INTACT AND PATENT.
[2017-03-03 06:09] LABS: ANION GAP 11.8 (8-16); CREATININE 0.8 mg/dL (0.6-1.3); POTASSIUM 3.8 mmol/L (3.5-5.1)
--- NOTE | 2017-03-03 07:10 | NUR ---
ENDORSED TO AM SHIFT NURSE FOR CONTINUITY CARE, IN STABLE CONDITION
[2017-03-03 07:21] LABS: LYMPHOCYTES % (MANUAL) 38 % (20-46); MONOCYTES % (MANUAL) 7 % (5-12)
[2017-03-03 08:00] VITALS: BP 114/75
--- NOTE | 2017-03-03 08:00 | NUR ---
Patient's Plan of Care was discussed and reviewed with HISTOLOGY AIDE: SILVERIO JURADO
[2017-03-03] MEDS: QUEtiapine FUMARATE 25 MG TAB PO SCH (08:41)
[2017-03-03] MEDS: TAMOXIFEN 10 MG TAB PO SCH (08:41)
[2017-03-03] MEDS: ECOTRIN 81 MG TABEC PO SCH (08:42)
[2017-03-03] MEDS: VENLAFAXINE XR 75 MG CAPER PO SCH (08:42)
[2017-03-03] MEDS: ENOXAPARIN 40 MG/0.4 ML SYR SUBQ SCH (08:45)
--- NOTE | 2017-03-03 10:15 | NUR ---
ENCOURAGED PT. TO AMBULATE ON HALLWAY. PT. REFUSED AND SAID "I'LL TRY LATER."
--- NOTE | 2017-03-03 11:50 | NUR ---
FAXED CONCURRENT REVIEW TO [facility] [phone] PHONE FLAKITO [phone]
[2017-03-03 12:00] VITALS: BP 99/63
--- NOTE | 2017-03-03 12:30 | NUR ---
PAGED PHYSICAL THERAPIST -CRISETTE REGARDING PT. PT EVAL AND TREATMENT. LEFT CALL BACK NUMBER.
--- NOTE | 2017-03-03 12:37 | NUR ---
PHYSICAL THERAPIST CAME FOR PT. PT. FITO AND TREATMENT.
--- NOTE | 2017-03-03 13:35 | NUR ---
DR. ZAMBRANO CAME, CHECKED PT. CHART, AND SEEN PT..
--- NOTE | 2017-03-03 14:13 | NUR ---
SS NOTE: I SPOKE WITH PT BEDSIDE REGARDING SHORT TERM SNF PLACEMENT FOR PHYSICAL THERAPY. PT STATED THAT HER HOME IS NEAR [facility] [address] AND WOULD LIKE TO GO TO A SNF CLOSE BY. I INFORMED HER THAT [facility] IS CONTRACTED WITH HER INSURANCE AND I CAN ASK IF THEY WILL HAVE A BED AVAILABLE FOR HER TODAY. PT VERBALIZED UNDERSTANDING AND REPORTED THAT SHE IS IN AGREEMENT WITH GOING THERE. SHE ALSO REPORTED THAT SHE WOULD BE OPEN TO GOING TO ANOTHER SNF IN [place] IF [facility] DOES NOT HAVE A BED AVAILABLE FOR HER.
[2017-03-03] MEDS ORDERED: MAG SULF 2000 MG/WATER PREMIX 50 ML IV SCH (14:29)
--- NOTE | 2017-03-03 14:41 | NUR ---
SS NOTE: PER ANDRÉS FROM [facility] ([phone]), PT CAN GO TO ROOM 29A UNDER DR[address] Divya NATH ANYTIME. FARIHA PONCE.
--- NOTE | 2017-03-03 14:45 | NUR ---
VERIFIED WITH DR. ZAMBRANO WHO WAS AT [facility] NURSE STATION AT THIS TIME ABOUT ORDER OF MAG RIDER 2 GM IVPB ALTHOUGH PT. MAG LEVEL WAS 1.8. PER DR. ZAMBRANO, JUST GO AHEAD GIVE MAG RIDER 2 GMS. IVPB. INFORMED CHARGE NURSE CAMELIA KEYS.
--- NOTE | 2017-03-03 15:13 | NUR ---
SPOKE WITH FLAKITO FROM [facility] AUTH FOR [facility] [id number]. CALLED [facility] AND SPOKE WITH BONNY AND GAVE HER THE AUTH. CALLED AND SET UP [facility] TRANSPORT FOR 6P.M. AUTH FOR TRANSPORT IS [id number]. NATALIA MINORINSTRUCTOR CORRES[employer]ONDENCE [employer]OL NURSE AWARE OF TIME OF TRANSPORT. Addendum: 03/03/17 at 1521 by Lizeth Painter PATIENT WILL BE UNDER THE CARE OF DR. Divya NATH. PHONE TO [facility] [place] [phone]. PATIENT WILL GO TO ROOM 29A.
--- NOTE | 2017-03-03 16:20 | NUR ---
CALLED [facility] AND SPOKE TO CRISTOBAL BHATTI AND GAVE REPORT.
--- NOTE | 2017-03-03 17:07 | NUR ---
CHARGE NURSE CAMELIA RAI -MILY SPOKE TO PT. REGARDING TRANSFER TO [facility] ROOM 29A.
--- NOTE | 2017-03-03 17:14 | NUR ---
EXPORT SALES ASSISTANT -DEMARIO CAME AND SPOKE TO PT. REGARDING PT. REFUSAL TO BE [place]SF[place] [facility] PT. NON-COMPLIANT AND VERBALLY ABUSIVE.
--- NOTE | 2017-03-03 17:30 | NUR ---
PATIENT WANTS TO SPEAK TO ME REGARDING CALLING HER INSURANCE, SHE CLAIMS THAT NOBODY TOLD HER ABOUT TRANSFERRING, PAGED DR ZAMBRANO REGARDING THE SITUATION. INFORMED HIM THAT SHE WANTS TO GO HOME. PATIENT WANTS TO TALK TO THE INSULATION BOARD HEAD SAW OPERATOR, [facility] EXPLAINING TO HER AND SHE DOESN'T WANT TO LISTEN. INFORMED HIM THAT SHE WANTS TO GO HOME. IS HERE AND SHE SAID THAT SHE WILL GO HOME IN SPITE OF EXPLAINING THE RISK AND CONSEQUENCES. SHE SIGNED AMA.
--- NOTE | 2017-03-03 17:38 | NUR ---
STILL NON-COMPLIANT, VERBALLY ABUSIVE. WENT AMA BUT REFUSED TO SIGN AMA FORM. INFORMED CHARGE NURSE CAMELIA RAI -MILY AND RADIOSONDE OPERATOR -DEMARIO. Addendum: 03/03/17 at 1946 by Kurt Hernadez LVN WRONG ENTRY: DUPLICATE.
--- NOTE | 2017-03-03 17:38 | NUR ---
PT. NON-COMPLIANT. VERBALLY ABUSIVE. WENT AMA AND REFUSED TO SIGN AMA FORM. INFORMED CHARGE NURSE CAMELIA RAI -MILY, AND AIRBRUSH PAINTER DEMARIO KEYS.
--- NOTE | 2017-03-03 19:45 | NUR ---
PAGED DR. ZAMBRANO AND SPOKE TO DIONTE REGARDING PT. AMA. PER LIZZY EID DR. IS TABLEAU ARCHITECT. LEFT CALL BACK NUMBER.
--- NOTE | 2017-03-03 19:46 | NUR ---
LIZZY CHAVARRIA CALLED BACK, INFORMED THAT PT. WENT AMA. INFORMED CHARGE NURSE RAY TRINIDAD -MILY.
== END 2017-03-03 17:38 | disposition left against medical advice (07) | DRG 918 ==
LOC: MED 18:55 → MTU 21:40
PROVIDERS: ADMIT Internal Medicine Pulmonary Disease; ATTEND Internal Medicine Pulmonary Disease
DX: T60.91XA Toxic effect of unspecified pesticide, accidental (unintentional), initial encounter (principal); C50.919 Malignant neoplasm of unspecified site of unspecified female breast; E83.42 Hypomagnesemia; E87.6 Hypokalemia; E86.0 Dehydration; I10 Essential (primary) hypertension; Z53.21 Procedure and treatment not carried out due to patient leaving prior to being seen by health care provider; D72.829 Elevated white blood cell count, unspecified; F31.9 Bipolar disorder, unspecified; F17.200 Nicotine dependence, unspecified, uncomplicated; Z79.810 Long term (current) use of selective estrogen receptor modulators (SERMs); Z88.1 Allergy status to other antibiotic agents; Y92.89 Other specified places as the place of occurrence of the external cause
CPT/HCPCS: 36415; 80048; 80053; 83605; 83735; 85025; 85610; 85730; 87081; 96365; 96375; 99285; J0360; J1650; J1885; J2060; J2270; J2405; J3475; J7030